=== PATIENT | female | born 1980 | race Hispanic/Latino ===

== ENCOUNTER 2018-04-01 17:30 | Inpatient (IN) | payer OTHER ==
--- NOTE | 2018-04-01 18:10 | C.PDOC ---
History Of Present Illness 37 y/o female sent by psychiatrist for worsening depression and with suicidal thoughts. As per patient she is compliant with medication and denies any physical complaints at this time. Time Seen by Provider: 04/01/18 17:54 Chief Complaint (Nursing): Psychiatric Evaluation History Per: Patient History/Exam Limitations: no limitations Onset/Duration Of Symptoms: Days Current Symptoms Are (Timing): Still Present Suicide/Self Injury Attempted (Context): None Modifying Factor(s): None Past Medical History Reviewed: Historical Data, Nursing Documentation, Vital Signs Vital Signs: Last Vital Signs Temp 98.1 F 04/01/18 19:45 Pulse 82 04/01/18 19:45 Resp 16 04/01/18 19:45 BP 111/79 04/01/18 19:45 Pulse Ox 96 04/01/18 21:08 - Medical History PMH: No Chronic Diseases Surgical History: No Surg Hx Family History: States: No Known Family Hx - Social History Hx Alcohol Use: Yes Hx Substance Use: Yes Review Of Systems Constitutional: Negative for: Fever Cardiovascular: Negative for: Chest Pain Respiratory: Negative for: Shortness of Breath Skin: Negative for: Rash Neurological: Negative for: Weakness, Numbness Psych: Positive for: Depression, Suicidal ideation. Negative for: Anxiety Physical Exam - Physical Exam Appears: Non-toxic, No Acute Distress Skin: Warm, Dry, No Rash Head: Atraumatic, Normacephalic Eye(s): bilateral: Normal Inspection Oral Mucosa: Moist Neck: Normal ROM, Supple Cardiovascular: Rhythm Regular Respiratory: Normal Breath Sounds, No Rales, No Rhonchi, No Wheezing Gastrointestinal/Abdominal: Soft, No Tenderness, No Guarding, No Rebound Neurological/Psych: Oriented x3, Normal Speech, Normal Cognition ED Course And Treatment - Laboratory Results Result Diagrams: 04/01/18 18:23 04/01/18 18:23 ECG: Interpreted By Me, Viewed By Me ECG Rhythm: Sinus Rhythm Rate From EC (BPM) O2 Sat by Pulse Oximetry: 96 (RA) Medical Decision Making Medical Decision Makin: Patient is medically cleared pt later reports ingested 3 clondine earlier in the day with etoh. pt awake alert oriented asa tylenol neg. no e/o of bradcardai , lethargy, hypotension. resp depression. ingestion was earlier in day. Disposition - Disposition Disposition: HOSPITALIZED Disposition Time: 21:18 Condition: STABLE Forms: [employer] ([place]an) - Clinical Impression Clinical Impression: Depression - Scribe Statement The provider has reviewed the documentation as recorded by the Juanibe Esvin Boggs All medical record entries made by the Scribe were at my direction and personally dictated by me. I have reviewed the chart and agree that the record accurately reflects my personal performance of the history, physical exam, medical decision making, and the department course for this patient. I have also personally directed, reviewed, and agree with the discharge instructions and disposition. Decision To Admit - Pt Status Changed To: Hospital Disposition Of: Inpatient - Admit Certification Admit to Inpatient:: After my assessment, the patient will require hospitalization for at least two midnights. This is because of the severity of symptoms shown, intensity of services needed, and/or the medical risk in this patient being treated as an outpatient. - InPatient: Physician Admission Certification: I certify that this patient requires 2 or more midnights of care for the following reason:: needspysch - . Bed Request Type: Psychiatry Admitting Physician: Shaggy Rizzo Patient Diagnosis: Depression
[2018-04-01 18:26] LABS: BASO # 0.1 K/uL (0.0-0.2); BASO % 0.8 % (0.0-2.0); EOS # 0.2 K/uL (0.0-0.7); EOS % 2.2 % (0.0-4.0); HEMOGLOBIN 11.4 g/dL (11.0-16.0); LYMPH # 2.1 K/uL (1.0-4.3); LYMPH % 25.4 % (20.0-40.0); MEAN CELL VOLUME 76.8 fL (81.0-99.0); MEAN CORPUSCULAR HEMOGLOBIN 24.7 pg (27.0-31.0); MEAN CORPUSCULAR HGB CONC 32.2 g/dL (33.0-37.0); MONO # 0.5 K/uL (0.0-0.8); MONO % 6.3 % (0.0-10.0); NEUT # 5.4 K/uL (1.8-7.0); NEUT % 65.3 % (50.0-75.0); NRBC % 0.1 % (0.0-2.0); RBC 4.62 Mil/uL (3.80-5.20); RED CELL DISTRIBUTION WIDTH 18.1 % (11.5-14.5); WHITE BLOOD COUNT 8.3 K/uL (4.8-10.8)
[2018-04-01 18:39] LABS: ALB/GLOB RATIO 1.3 (1.0-2.1); ALBUMIN 4.5 g/dL (3.5-5.0); ALT/SGPT 22 U/L (9-52); AST/SGOT 15 U/L (14-36); BLOOD UREA NITROGEN 5 mg/dL (7-17); CALCIUM 9.8 mg/dl (8.6-10.4); GFR AFRICAN-AMERICAN > 60; GFR NON-AFRICAN AMERICAN > 60
[2018-04-01 18:44] LABS: ACETAMINOPHEN < 10.0 ug/mL (10.0-30.0); SALICYLATE < 1.0 mg/dL 1
[2018-04-01 19:14] LABS: HCG,QUALITATIVE URINE NEGATIVE (NEGATIVE)
[2018-04-01 19:15] LABS: SQUAMOUS EPITHIAL 1 /hpf (0-5); URINE BACTERIA RARE (<OCC); URINE BILIRUBIN NEGATIVE (NEGATIVE); URINE BLOOD NEGATIVE (NEGATIVE); URINE CLARITY Hazy (Clear); URINE COLOR Yellow (YELLOW); URINE GLUCOSE (UA) NORMAL (Normal); URINE LEUKOCYTE ESTERASE NEG Leu/uL (Negative); URINE PROTEIN NEGATIVE (NEGATIVE); URINE UROBILINOGEN NORMAL mg/dL (0.2-1.0)
[2018-04-01 19:27] LABS: BARBITURATES, UR NEGATIVE (NEGATIVE); BENZODIAZEPINES, UR NEGATIVE (NEGATIVE); OPIATES, UR NEGATIVE (NEGATIVE); PHENCYCLIDINE, UR NEGATIVE (NEGATIVE)
[2018-04-01 21:59] VITALS: O2SAT 98
--- NOTE | 2018-04-01 22:38 | PCM.BM ---
<Too Downey - Last Filed: 04/01/18 22:37> Treatment Plan Problems - Problems identified on initial assessmt Depression Date Initiated: 04/01/18 Time Initiated: 22:15 Assessment reference: NA Status: Active Suicidal Ideation Date Initiated: 04/01/18 Time Initiated: 22:15 Status: Monitor Treatment assets and liabiliti Patient Assests: negotiates basic needs Patient Liabilities: substance abuse (Cannabis) - Milieu Protocol Maintain good personal hygiene: daily Encourage regular showers, daily Remind patient to perform daily oral care, every shift Assist patient to perform ADL's Conduct patient checks and document Observation sheet: Q15 minutes Maintain personal safety: every shift Educate patient to report safety concerns to staff, every shift Monitor environment for contraband/sharps Medication safety: Monitor for expected outcome, potential side effects: every shift, Assess barriers to learning: every shift, Assess readiness for medication education: every shift <Zina Ribera - Last Filed: 04/02/18 11:30> - Diagnosis (1) Bipolar disorder, current episode mixed, severe, without psychotic features Status: Acute Interventions: 04/02/18 11:30 * Assess/adjust medications daily and /or as needed * See patient on an individual basis 7x/week to assess level of manic behaviors and stability * Discuss risks, benefits, side effects and alternatives of medications * <Darcie August - Last Filed: 04/02/18 11:37> Family Contact Family involvement: Family/SO is involved Family contact: Patient declines to allow family contact at present - Goals for Treatment Patient goals for treatment: "I want to go back to my doctor." Discharge/Continuing Care - Education Needs Education Needs: Patient Medication, Patient Coping Skills - Discharge Discharge Criteria: Tolerates medication w/o severe side effects, Reduction of target symptoms Discharge to:: Home, With Family - Treatment Team Participation Discussed with Family/SO: No Was Patient/Family/SO present at Treatment Team Meeting: Yes
[2018-04-02] MEDS: Levothyroxine 100 MCG TAB PO SCH (06:42)
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
[2018-04-03] MEDS: Levothyroxine 100 MCG TAB PO SCH (06:25)
--- NOTE | 2018-04-03 10:31 | PCM.PYCHPN ---
Psychiatric Progress Note - Psychiatric Progress Note Patient seen today, length of contact: 15 min Patient Chief Complaint: I am feeling little better.' Problems Identified/Issues Discussed: Patient seen and evaluated, chart reviewed and discussed with the nurse. Patient reports irritability and agitation. She reports some improvement in her racing of thoughts and flight of ideas and anxiety. She started coming out of her room. However she remained calm and cooperative. She is taking medication and denies any side effects. Symptoms are improving but she requires more time for stabilization Supportive therapy and psychoeducation were given Medication Change: Yes Medical Record Reviewed: Yes Mental Status Examination - Cognitive Function Orientation: Person, Place, Situation, Time Memory: Intact Attention: WNL Concentration: Poor Association: WNL Fund of Knowledge: Poor - Mood Mood: Depressed, Anxious - Affect Affect: Constricted, Depressed - Speech Speech: Soft - Formal Thought Process Formal Thought Process: Flight of ideas - Suicidal Ideation Suicidal Ideation: No - Homicidal Ideation Homicidal Ideation: No Goal/Treatment Plan - Goal/Treatment Plan Need for Continued Stay: Severe depression anxiety, Severe functional impairment Progress Toward Problem(s) and Goals/Treatment Plan: Bipolar disorder mixed severe without psychotic features -CBT -Psychoeducation -Supportive therapy, group therapy, individual therapy -Abilify 10 mg by mouth q daily -Neurontin 100 mg by mouth 3 times a day -Trazodone 50 mg by mouth daily at bedtime Alcohol use disorder mild -CBT -Psychoeducation -Supportive therapy, individual therapy Cannabis use disorder mild -CBT -Psychoeducation -Supportive therapy, individual therapy - Smoking Cessation Smoking Cessation Initiated: No
[2018-04-04] MEDS: Levothyroxine 100 MCG TAB PO SCH (06:29)
--- NOTE | 2018-04-04 10:10 | PCM.PYCHPN ---
Psychiatric Progress Note - Psychiatric Progress Note Patient seen today, length of contact: 15 min Patient Chief Complaint: I am feeling little better.' Problems Identified/Issues Discussed: Patient seen and evaluated, chart reviewed and discussed with the nurse. Staff reports pt is less irritable. Patient reports some improvement in her irritability and agitation. She reports some improvement in her racing of thoughts and flight of ideas and anxiety. However she remained calm and cooperative. She is taking medication and denies any side effects. Symptoms are improving but she requires more time for stabilization Supportive therapy and psychoeducation were given Medication Change: Yes (increase gabapentin) Medical Record Reviewed: Yes Mental Status Examination - Cognitive Function Orientation: Person, Place, Situation, Time Memory: Intact Attention: WNL Concentration: Poor Association: WNL Fund of Knowledge: Poor - Mood Mood: Depressed, Anxious - Affect Affect: Constricted, Depressed - Speech Speech: Soft - Formal Thought Process Formal Thought Process: Flight of ideas - Suicidal Ideation Suicidal Ideation: No - Homicidal Ideation Homicidal Ideation: No Goal/Treatment Plan - Goal/Treatment Plan Need for Continued Stay: Severe depression anxiety, Severe functional impairment Progress Toward Problem(s) and Goals/Treatment Plan: Bipolar disorder mixed severe without psychotic features -CBT -Psychoeducation -Supportive therapy, group therapy, individual therapy -Abilify 10 mg by mouth q daily -Neurontin 300 mg by mouth 3 times a day -Trazodone 50 mg by mouth daily at bedtime Alcohol use disorder mild -CBT -Psychoeducation -Supportive therapy, individual therapy Cannabis use disorder mild -CBT -Psychoeducation -Supportive therapy, individual therapy Hypothyroidism -Continue Levothyroxine
--- NOTE | 2018-04-04 17:06 | CARD ---
APPROVED REPORT EKG Measurement Heart [id number] <Conclusion> Normal sinus rhythm Normal ECG
[2018-04-05] MEDS: Levothyroxine 100 MCG TAB PO SCH (05:42)
--- NOTE | 2018-04-05 16:30 | PCM.PYCHPN ---
Psychiatric Progress Note - Psychiatric Progress Note Patient seen today, length of contact: 15 min Patient Chief Complaint: "I'm feeling better" Problems Identified/Issues Discussed: Patient was seen. Chart was reviewed important content noted. Nurse input received. Patient stated that she is feeling better. No events overnight. Pt still has flight of ideation. Patient slept well and is eating well. Patient denies any depressive symptoms. Denies suicidal or homicidal ideations. Patient does not report hallucinations. No delusions elicited. No paranoia elicited. Patient has remained in good clinical and behavioral control. Symptoms are improving, but needs more time to stabilize. Diagnostic Results: Bipolar disorder Medication Change: No Medical Record Reviewed: Yes Mental Status Examination - Cognitive Function Orientation: Person, Place, Situation, Time Memory: Intact Attention: WNL Concentration: WNL Association: WNL Fund of Knowledge: Poor Decription of patient's judgement and insights: limited/limited - Mood Mood: Depressed, Anxious - Affect Affect: Constricted, Depressed - Speech Speech: Appropriate, Soft - Formal Thought Process Formal Thought Process: Flight of ideas Psychotic Thoughts and Behaviors: denied - Suicidal Ideation Suicidal Ideation: No Plan: denied - Homicidal Ideation Homicidal Ideation: No Plan: denied Goal/Treatment Plan - Goal/Treatment Plan Need for Continued Stay: Severe depression anxiety, Discharge may exacerbated symptoms, Severe functional impairment Progress Toward Problem(s) and Goals/Treatment Plan: Bipolar disorder mixed severe without psychotic features -CBT -Psychoeducation -Supportive therapy, group therapy, individual therapy -Abilify 10 mg by mouth q daily -Neurontin 300 mg by mouth 3 times a day -Trazodone 50 mg by mouth daily at bedtime Alcohol use disorder mild -CBT -Psychoeducation -Supportive therapy, individual therapy Cannabis use disorder mild -CBT -Psychoeducation -Supportive therapy, individual therapy Hypothyroidism -Continue Levothyroxine Estimated Date of D/C: 04/09/18
[2018-04-06] MEDS: Levothyroxine 100 MCG TAB PO SCH (06:06)
[2018-04-06 06:39] VITALS: RESP 18
--- NOTE | 2018-04-06 17:11 | PCM.PYCHPN ---
Psychiatric Progress Note - Psychiatric Progress Note Patient seen today, length of contact: 15 min Patient Chief Complaint: "I'm feeling better" Problems Identified/Issues Discussed: Patient was seen. Chart was reviewed important content noted. Nurse input received that she is compliant with her meds. Patient stated that she is feeling better. No events overnight. Pt still has manic symptoms. Patient slept well and is eating well. Patient denies depressive symptoms. Denies suicidal or homicidal ideations. Patient does not report hallucinations. No delusions elicited. No paranoia elicited. Patient has remained in good clinical and behavioral control. Symptoms are improving, but needs more time to stabilize. Diagnostic Results: Bipolar disorder Medication Change: No Medical Record Reviewed: Yes Mental Status Examination - Cognitive Function Orientation: Person, Place, Situation, Time Memory: Intact Attention: WNL Concentration: WNL Association: WNL Fund of Knowledge: Poor Decription of patient's judgement and insights: fair/fair - Mood Mood: Anxious, Euphoric - Affect Affect: Constricted, Depressed - Speech Speech: Appropriate, Soft - Formal Thought Process Formal Thought Process: Flight of ideas Psychotic Thoughts and Behaviors: denied - Suicidal Ideation Suicidal Ideation: No Plan: denied - Homicidal Ideation Homicidal Ideation: No Plan: denied Goal/Treatment Plan - Goal/Treatment Plan Need for Continued Stay: Severe depression anxiety, Discharge may exacerbated symptoms, Severe functional impairment Progress Toward Problem(s) and Goals/Treatment Plan: Bipolar disorder mixed severe without psychotic features -CBT -Psychoeducation -Supportive therapy, group therapy, individual therapy -Abilify 10 mg by mouth q daily -Neurontin 300 mg by mouth 3 times a day -Trazodone 50 mg by mouth daily at bedtime Alcohol use disorder mild -CBT -Psychoeducation -Supportive therapy, individual therapy Cannabis use disorder mild -CBT -Psychoeducation -Supportive therapy, individual therapy Hypothyroidism -Continue Levothyroxine Estimated Date of D/C: 04/09/18
[2018-04-07] MEDS: Levothyroxine 100 MCG TAB PO SCH (06:04)
[2018-04-07 06:37] VITALS: BP 102/64; PULSE 84; TEMP 98.5
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
== END 2018-04-07 11:58 | disposition home or self-care (01) | DRG 885 ==
LOC: C.ER 17:30 → C.5E 21:16
PROC: GZ3ZZZZ Medication Management (ICD-10-PCS; principal; 2018-04-01)
PROC: GZHZZZZ Group Psychotherapy (ICD-10-PCS; 2018-04-01)
PROC: GZ56ZZZ Individual Psychotherapy, Supportive (ICD-10-PCS; 2018-04-01)
PROC: HZ59ZZZ Individual Psychotherapy for Substance Abuse Treatment, Supportive (ICD-10-PCS; 2018-04-01)
PROC: HZ46ZZZ Group Counseling for Substance Abuse Treatment, Psychoeducation (ICD-10-PCS; 2018-04-01)
DX: F31.63 Bipolar disorder, current episode mixed, severe, without psychotic features (principal); R45.851 Suicidal ideations; F42.9 Obsessive-compulsive disorder, unspecified; F43.10 Post-traumatic stress disorder, unspecified; F12.90 Cannabis use, unspecified, uncomplicated; F10.10 Alcohol abuse, uncomplicated; E03.9 Hypothyroidism, unspecified; Z91.5 Personal history of self-harm; Z91.410 Personal history of adult physical and sexual abuse; Z91.411 Personal history of adult psychological abuse